=== PATIENT | female | born 1995 | race Caucasian/White ===

== ENCOUNTER 2017-05-20 20:35 | Emergency (ER) | payer OTHER ==
[~2017-05-20] VITALS: Ht 154.9 cm; Wt 62.5 kg
[~2017-05-20 20:35] MED LIST: BACTDS PO; CEPH-443 PO; HYDR-3498 PO; IBUP400T22 PO; NITR-58 PO; ONDA4TAB35 PO
[2017-05-20 20:41] VITALS: Ht 154.9 cm; Wt 62.5 kg
[2017-05-20] MEDS ORDERED: CETI10CA PO (23:38)
[2017-05-20] MEDS ORDERED: BEN25 PO (23:39)
[2017-05-21] VITALS: BP 129/78; PULSE 78; RESP 16; TEMP 98.3
--- NOTE | 2017-05-21 03:11 | ERD ---
ER Documentation Chief Complaint Date/Time DATE: 05/21/17 TIME: 03:10 Chief Complaint rash on legs for 2 weeks HPI Patient is a 22 year old female who presents with concerns of a rash to her legs. Patient reports "red spots" to bilateral legs. Patient states more lesions are appearing daily. Patient reports itchiness of lesions. Denies bleeding. Patient sleeps alone. Patient denies any fever or chills. Patient is using calamine lotion to affected lesions. Patient denies new foods, medications , environment changes, pets. ROS All systems reviewed and are negative except as per history of present illness. Medications Home Meds Active Scripts Diphenhydramine Hcl* (Benadryl*) 25 Mg Cap, 25 MG PO Q6, #30 CAP Prov:TJ PARISH PA-C 05/20/17 Cetirizine Hcl* (Zyrtec*) 10 Mg Capsule, 10 MG PO DAILY, #10 TAB.CHEW Prov:TJ PARISH PA-C 05/20/17 Sulfamethoxazole-Trimethoprim* (Bactrim* DS) 800-160 Mg Tab, 1 TAB PO BID for 5 Days, TAB Prov:CAROLYNN WASHINGTON PA-C 02/08/16 Cephalexin* (Keflex*) 500 Mg Capsule, 500 MG PO QID for 5 Days, CAP Prov:CAROLYNN WASHINGTON PA-C 02/08/16 Ibuprofen* (Motrin*) 400 Mg Tab, 400 MG PO Q6H Y for PAIN AND OR ELEVATED TEMP, #30 TAB Prov:CAROLYNN WASHINGTON PA-C 02/08/16 Nitrofurantoin Monohyd Macrocr* (Macrobid*) 100 Mg Capsr, 100 MG PO BID for 7 Days, CAP Prov:CONCHITA GLOVER PA-C 01/29/16 Ondansetron Hcl* (Zofran* ODT) 4 mg -ODT Tab.disper, 4 MG PO Q6 Y for NAUSEA AND /OR VOMITING, #10 TAB Prov:CONCHITA GLOVER PA-C 01/29/16 Hydrocodone Bit-Acetaminophen* ([place]*) 5-325 Mg Tab, 1 TAB PO Q6 Y for PAIN, # 10 TAB Prov:CONCHITA GLOVER PA-C 01/29/16 Allergies Allergies: Coded Allergies: No Known Allergies (Verified Allergy, Unknown, 06/27/09) PMhx/Soc History of Surgery: Yes (S/P iNCISION AND DRAINAGE OF ABCESS (ABDOMEN)) Anesthesia Reaction: No Hx Neurological Disorder: No Hx Respiratory Disorders: No Hx Cardiac Disorders: No Hx Psychiatric Problems: No Hx Miscellaneous Medical Probl: No Hx Alcohol Use: No Hx Substance Use: No Hx Tobacco Use: No Smoking Status: Never smoker Physical Exam Vitals Vital Signs Date Time Temp Pulse Resp B/P Pulse Ox O2 Delivery O2 Flow Rate FiO2 05/21/17 00:00 98.3 78 16 129/78 97 05/20/17 20:41 98.3 85 16 138/80 97 Physical Exam GENERAL: Well-developed, well-nourished female. Appears in no acute distress. HEAD: Normocephalic, atraumatic. EYES: Pupils are equally reactive bilaterally. EOMs grossly intact. No conjunctival erythema. ENT: Moist mucous membranes. No uvula deviation. No kissing tonsils. NECK: Supple. No lymphadenopathy or thyromegaly. No meningismus. LUNG: Clear to auscultation bilaterally. No rhonchi, wheezing, rales or coarse breath sounds. HEART: Regular rate and rhythm. No murmurs, rubs or gallops. Extremities: Equal pulses bilaterally. No peripheral clubbing, cyanosis or edema. No unilateral leg swelling. NEUROLOGIC: Alert and oriented. Moving all four extremities. 5/5 strength in all extremities. Normal speech. Steady gait. SKIN: Erythematous, circular, slightly raised lesions noted on legs. No active bleeding or discharge. Negative Nikolsky sign. Procedures/MDM MEDICAL DECISION MAKING: This is a 22 year old female who presents with concerns of itchy lesions to bilateral legs x 2 weeks. Vital signs were reviewed. Patient was afebrile. Patient is not diabetic. Given these findings, the patients presentation is most consistent with insect bites. I have a much lower clinical concern for necrotizing fasciitis, sepsis, gangrene, Jesu-Marcos syndrome, toxic epidural necrolysis, abscess, cellulitis, herpes zoster, viral exanthem, anaphylaxis, allergic reaction, fungal infection. Patient advised to change her sleeping arrangements and see if lesions persist as there is a concern for beg bugs. PRESCRIPTIONS: Benadryl Zyrtec DISCHARGE: At this time, patient is stable for discharge and outpatient management. I have advised the patient to avoid any new products, creams or possible allergens. I have advised the patient to avoid scratching the lesions. I have instructed the patient to follow-up with his/her primary care physician in 1-2 days. If symptoms persist, patient may need to see a hydrocrane operator for further examinations and testing. I have instructed the patient to promptly return to the ER at any time for any new or worsening symptoms including increased pain, fever, redness, swelling, warmth, difficulty breathing or vomiting. The patient and/or family expressed understanding of and agreement with this plan. All questions were answered. Home care instructions were provided. Departure Diagnosis: Primary Impression: Insect bites Encounter type: initial encounter Qualified Code: W57.XXXA - Insect bite, initial encounter Condition: Stable Patient Instructions: Insect Bite Referrals: SELWYN LAU MD,TRESSA RAMOS,DEE ALEJANDRO,LIANG NOWAK,CODY SANTIAGO,[facility] YOU HAVE RECEIVED A MEDICAL SCREENING EXAM AND THE RESULTS INDICATE THAT YOU DO NOT HAVE A CONDITION THAT REQUIRES URGENT TREATMENT IN THE EMERGENCY DEPARTMENT. FURTHER EVALUATION AND TREATMENT OF YOUR CONDITION CAN WAIT UNTIL YOU ARE SEEN IN YOUR DOCTORS OFFICE WITHIN THE NEXT 1-2 DAYS. IT IS YOUR RESPONSIBILITY TO MAKE AN APPOINTMENT FOR FOLOW-UP CARE. IF YOU HAVE A PRIMARY DOCTOR --you should call your primary doctor and schedule an appointment IF YOU DO NOT HAVE A PRIMARY DOCTOR YOU CAN CALL OUR PHYSICIAN REFERRAL HOTLINE AT IF YOU CAN NOT AFFORD TO SEE A PHYSICIAN YOU CAN CHOSE FROM THE FOLLOWING [facility] [address] [facility]. [facility] [address] [facility]. [facility] [address] [facility] [address] [facility]. [facility] [address] [facility]. [facility]. [address] [facility] YOU HAVE RECEIVED A MEDICAL SCREENING EXAM AND THE RESULTS INDICATE THAT YOU DO NOT HAVE A CONDITION THAT REQUIRES URGENT TREATMENT IN THE EMERGENCY DEPARTMENT. FURTHER EVALUATION AND TREATMENT OF YOUR CONDITION CAN WAIT UNTIL YOU ARE SEEN IN YOUR DOCTORS OFFICE WITHIN THE NEXT 1-2 DAYS. IT IS YOUR RESPONSIBILITY TO MAKE AN APPOINTMENT FOR FOLOW-UP CARE. IF YOU HAVE A PRIMARY DOCTOR --you should call your primary doctor and schedule and appointment IF YOU DO NOT HAVE A PRIMARY DOCTOR YOU CAN CALL OUR PHYSICIAN REFERRAL HOTLINE AT . IF YOU CAN NOT AFFORD TO SEE A PHYSICIAN YOU CAN CHOSE FROM THE FOLLOWING [facility] INSTITUTIONS: [facility] [address] [place] [address] [facility] [address] [place] [address] [facility] [address] [place] [address] Additional Instructions: Call your primary care doctor TOMORROW for an appointment during the next 1-2 days.See the doctor sooner or return here if your condition worsens before your appointment time. You may need to follow up with hydrocrane operator if rash persists. See referral information. TJ PARISH PA-C May 21, 2017 03:11
== END 2017-05-21 00:02 | disposition home or self-care (01) ==
LOC: FTE 20:35
DX: S80.862A Insect bite (nonvenomous), left lower leg, initial encounter (principal); S80.861A Insect bite (nonvenomous), right lower leg, initial encounter; W57.XXXA Bitten or stung by nonvenomous insect and other nonvenomous arthropods, initial encounter; Y92.9 Unspecified place or not applicable
CPT/HCPCS: 99283

== ENCOUNTER 2017-08-19 08:14 | Emergency (ER) | END 2017-08-19 08:54 | disposition home or self-care (01) ==

== ENCOUNTER 2017-08-21 12:16 | Emergency (ER) | END 2017-08-21 15:25 | disposition home or self-care (01) ==

== ENCOUNTER 2017-09-02 22:52 | Emergency (ER) | END 2017-09-03 00:25 | disposition left against medical advice (07) ==